=== PATIENT | male | born 1995 | race Two or more races ===

== ENCOUNTER 2024-11-27 14:44 | Emergency (ER) | payer BC, OTHER ==
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
[2024-11-27 18:57] VITALS: BP 141/99; TEMP 98.4; O2SAT 98
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
== END 2024-11-27 18:33 | disposition home or self-care (01) ==
LOC: ER 14:44
DX: M54.2 Cervicalgia (principal); M54.9 Dorsalgia, unspecified; V49.49XA Driver injured in collision with other motor vehicles in traffic accident, initial encounter
CPT/HCPCS: 72125; 72128; 99283